=== PATIENT | female | born 2000 | race Caucasian/White ===

== ENCOUNTER 2022-09-19 12:36 | Outpatient (OUT) | payer OTHER, SELFPAY ==
[2022-09-19 13:11] LABS: Basophils Percent Auto 0.4 % (0.2-2.0); Eosinophils Absolute Auto 0.3 10^3/uL (0.0-0.7); Eosinophils Percent Auto 3.3 % (0.9-7.0); Hematocrit 39.1 % (36.0-48.0); Hemoglobin 13.7 g/dL (12.0-16.0); Immature Granulocytes Abs Auto 0.02 10^3/uL (0.00-0.03); Immature Granulocytes Pct Auto 0.3 % (0.0-0.5); Lymphocytes Absolute Auto 0.7 10^3/uL (1.2-3.8); Lymphocytes Percent Auto 9.5 % (20.5-60.0); Mean Corpuscular Hemoglobin 31.1 pg (26.7-34.0); Mean Corpuscular Volume 88.9 fL (81.0-99.0); Mean Platelet Volume 11.1 fL (9.5-13.5); Monocytes Absolute Auto 0.4 10^3/uL (0.3-0.8); Monocytes Percent Auto 4.9 % (1.7-12.0); Neutrophils Absolute Auto 6.2 10^3/uL (1.4-6.5); Neutrophils Percent Auto 81.6 % (43.0-75.0); Platelet Count 222 10^3/uL (150-450); Red Cell Distribution Width 13.1 % (11.0-15.0); White Blood Count 7.6 10^3/uL (4.0-11.0)
[2022-09-19 13:37] LABS: Estimated Average Glucose 85 mg/dL; Glycohemoglobin A1C 4.6 % (4.5-6.2)
[2022-09-19 13:46] LABS: Thyroid Stimulating Hormone 0.473 uIU/mL (0.358-3.740)
[2022-09-20 06:08] LABS: HBsAg Screen Negative (Negative); HCV Ab Non Reactive (Non Reactive); HIV Ab/p24 Ag Screen Non Reactive (Non Reactive); Rubella Antibodies, IgG 1.91 index (Immune >0.99)
[2022-09-20 12:09] LABS: Rapid Plasma Reagin, Quant Non Reactive (NonRea<1:1)
== END 2022-09-19 12:37 ==
LOC: LAB 12:39
PROVIDERS: PCP Family Medicine; Visit Provider Obstetrics & Gynecology
DX: N92.6 Irregular menstruation, unspecified (principal)
CPT/HCPCS: 36415; 83036; 84443; 85025; 86592; 86762; 86803; 86850; 86900; 86901; 87086; 87340; 87389

== ENCOUNTER 2022-11-28 10:02 | Outpatient (RCR) | payer OTHER, SELFPAY ==
[2022-11-28 10:05] VITALS: BP 127/81; PULSE 86; RESP 18; TEMP 36.6; O2SAT 99
--- NOTE | 2022-11-28 10:05 | PC.NURSE ---
Pt. to [facility] amb. per self. Seated in recliner. VSS. Blood type verified. Pt. denies questions about med. Denies adverse reactions from past injections. Pt. medicated with Rhophylac, 300 mcg, IM to right dorsal gluteal. No bleeding to site. Pt. tolerated without c/o. Pt. kept for brief observation. D/c'd to home amb.
[2022-11-28] MEDS: RHO(D) IMMUNE GLOBULIN 1,500 UNIT SYRINGE 1500 UNIT IM (10:07)
== END 2022-12-12 23:59 | disposition home or self-care (01) ==
LOC: INF 10:02
PROVIDERS: PCP Family Medicine; Visit Provider Obstetrics & Gynecology
DX: O26.893 Other specified pregnancy related conditions, third trimester (principal); Z67.91 Unspecified blood type, Rh negative; Z3A.00 Weeks of gestation of pregnancy not specified
CPT/HCPCS: 96372; J2790

== ENCOUNTER 2022-12-11 20:33 | Outpatient (REF) | payer OTHER, SELFPAY | END 2022-12-11 20:34 | disposition home or self-care (01) | LOC: LAB 20:33 | PROVIDERS: PCP Family Medicine; Visit Provider Obstetrics & Gynecology | DX: Z34.93 Encounter for supervision of normal pregnancy, unspecified, third trimester (principal) | CPT/HCPCS: 87081 ==

== ENCOUNTER 2022-12-30 04:55 | Inpatient (IN) | payer OTHER, SELFPAY ==
[2022-12-30] VITALS (36 sets, daily range): BP systolic 80–153; BP diastolic 50–85; PULSE 48–116; RESP 16–18; TEMP 36.4–36.6
[2022-12-30 05:56] LABS: Hematocrit 33.7 % (36.0-48.0); Hemoglobin 11.7 g/dL (12.0-16.0); Mean Corpuscular HGB Conc 34.7 g/dL (29.9-35.2); Mean Corpuscular Hemoglobin 29.9 pg (26.7-34.0); Mean Corpuscular Volume 86.2 fL (81.0-99.0); Mean Platelet Volume 11.5 fL (9.5-13.5); Platelet Count 201 10^3/uL (150-450); Red Blood Count 3.91 10^6/uL (4.20-5.40); White Blood Count 6.8 10^3/uL (4.0-11.0)
[2022-12-30 06:19] LABS: Cannabinoid Screen Urine POSITIVE (NEGATIVE)
[2022-12-30 06:20] LABS: Amphetamine Screen Urine NEGATIVE (NEGATIVE); Barbiturates Screen Urine NEGATIVE (NEGATIVE); Benzodiazepines Screen Urine NEGATIVE (NEGATIVE); Buprenorphine Screen Urine NEGATIVE (NEGATIVE); Cocaine Screen Urine NEGATIVE (NEGATIVE); Methadone Screen Urine NEGATIVE (NEGATIVE); Methamphetamines Screen Urine NEGATIVE (NEGATIVE); Opiate Screen Urine NEGATIVE (NEGATIVE); Oxycodone Screen Urine NEGATIVE (NEGATIVE); Phencyclidine Screen Urine NEGATIVE (NEGATIVE); Tricyclic Antidepressant Urine NEGATIVE (NEGATIVE)
[2022-12-30] MEDS: 0.9 % SODIUM CHLORIDE 1,000 ML 125 ML IV (06:42)
[2022-12-30] MEDS: OXYTOCIN/0.9 % SODIUM CHLORIDE 10 UNITS/500 ML PLAST..BAG 6 UNIT IV (06:45)
[2022-12-30] MEDS: ROPIVACAINE HCL/PF 400 MG/200 ML PREMIX 6 MG EPIDURAL (11:31)
[2022-12-30] MEDS: FENTANYL CITRATE/PF 100 MCG/2 ML VIAL EPIDURAL (11:32)
--- NOTE | 2022-12-30 15:00 | PM.OBPRCVD ---
Procedure Intrapartal events: None Induction method: per pitocin protocol Delivery augmentation: rupture of membranes and pitocin Delivery monitor: external FHT and external uterine Route of delivery: Laceration description: perineal - 1st degree Delivery repair: Vicryl Estimated blood loss (mL): 400 Anesthesia type: Epidural Disposition: floor Infant Delivery date: 12/30/22 Gender: female presentation: vertex Placental delivery description: Spontaneous cord description: 3 Vessels
[2022-12-30] MEDS: IBUPROFEN 600 MG TABLET PO (15:31)
--- NOTE | 2022-12-30 16:54 | PC.NURSE ---
pt c/o abdominal cramping, 11/21. on left side. c/o lower back pain. Motrin and heating pad offered. pt accepts. Motrin given as requested PO with snack and fresh ice water. Pad changed for a moderate-large amount of rubra. Uterus firm at 2/u.
--- NOTE | 2022-12-30 16:57 | PC.NURSE ---
1625-latches infant to breast independently. reports some relief from cramping pain. rates 5/10. denies other needs at this time
[2022-12-30] MEDS: METHYLERGONOVINE MALEATE 0.2 MG/ML AMPULE IM (18:18)
[2022-12-30] MEDS: ONDANSETRON PF 4 MG/2 ML VIAL IV (18:54)
--- NOTE | 2022-12-30 19:27 | PC.NURSE ---
pt requests up to BR. Moderate amount of rubra noted on chux. uterus 1/u. Assisted up to BR, tolerates well and to BR. This RN assists pt to toilet to void. pt voids, and then turns pale and diaphoretic, closes eyes and has syncopal episode for approx 10-15 seconds. This RN over pt, places cool wash rag on forehead and rubs pts face, assistance requested. IV 20 pit in 1000 NS to 999ml/hr. Pt opens eyes, oriented to person place. [id number] to room, ammonia capsule inhaled per pt, becomes more alert instantly. pericare completed. Pad and mess underwear applied. assisted to wheelchair to return to bed. Pt smiling , talking oriented. Bedlinens changed , comfort mattress applied. Assisted to bed, tolerates well in low semi levy's . BP as charted. Pt remains slightly pale but lips pink. 1804-Dr. Floyd notified of above. orders receieved to give Mehtergine 0.2mg IM as ordered. 1817-Pt remains in bed comfortable, asymptomatic. Visiting with family . Methergine 0.2mg give in right thigh IM. 1824-pt eats supper. denies needs BP as charted. 1844-pt reports large emesis big gush . Small dinner plate size clot noted, moderate rubra. Uterus firm at 1/u. Perineum incision inspected, well approximated, no edema noted. Chux and pad changed. VSS. 185-Zofran 4mg given IV as requested. denies other needs at this time. 1899-report to Laquita BEAL. Care relinquished.
--- NOTE | 2022-12-30 20:49 | PC.NURSE ---
2034- Patient up to bathroom via wheelchair. While sitting on toilet patient states she feels dizzy and ears are ringing. Patient is pale in color. This RN called for help, Amonia used with patient response. Patient alert and oriented. Taken back to bed,Uterus firm at U/E minimal bleeding and vitals WNL.
[2022-12-30] MEDS: 0.9 % SODIUM CHLORIDE 1,000 ML 999 ML IV (21:19)
--- NOTE | 2022-12-30 21:20 | PC.NURSE ---
500cc bolus of NS started d/t patients symptoms.
[2022-12-31] MEDS: IBUPROFEN 600 MG TABLET PO ×2 (00:48→10:18)
--- NOTE | 2022-12-31 05:40 | PM.OBPN ---
OB - PN: Subj Subjective Patient comments: no complaints, pain well controlled and flatus present infant status: doing well [facility] feeding status: exclusively Exam Constitutional Vital Signs, click to edit/add: Last Vital Signs Temp 97.6 F 12/30/22 23:20 Pulse 69 12/30/22 23:20 Resp 16 12/30/22 23:20 BP 132/66 12/30/22 23:20 O2 Del Method Room Air 12/30/22 23:20 Documenting provider has reviewed patient's vital signs: yes Common normals: no apparent distress Orientation/consciousness: Yes awake, Yes oriented to person, Yes oriented to place and Yes oriented to time HENMT Common normals: normocephalic Eye Common normals: EOMs intact bilaterally General eye: normal appearance of both eyes Neck & C-Spine Common normals: full ROM Lymph Lymphatic: no lymphadenopathy noted Chest Common normals: inspection of chest normal Respiratory Common normals: normal respiratory effort, no retractions, no use of accessory muscles and clear to auscultation bilaterally Effort & inspection: able to speak in complete sentences Auscultation: clear to auscultation bilaterally Cardio Common normals: regular rate and regular rhythm Rate: regular rate Rhythm: regular rhythm GI Common normals: Normal to inspection, nondistended, normoactive bowel sounds present, soft to palpation and non-tender Inspection: normal to inspection Auscultation: normoactive bowel sounds Palpation: soft Common normals: no CVA tenderness Back & Pelvis Common normals: no CVA tenderness Extremity Common normals: normal to inspection and full ROM Neuro Common normals: oriented x3 Sensorium/orientation: awake, alert, oriented to person, oriented to place and oriented to time Psych Common normals: mental status grossly normal, thought process normal, cooperative, affect normal and speech normal Attitude: calm Results Labs Labs: Short CBC 12/30/22 Range/Units 05:20 WBC 6.8 (4.0-11.0) 10^3/uL Hgb 11.7 L (12.0-16.0) g/dL Hct 33.7 L (36.0-48.0) % Plt Count 201 (150-450) 10^3/uL OB - PN: A/P Plan - Vaginal Delivery day: 1 Plan: routine care, discharge home and follow up 6 weeks Comment: follow up with Dr Lujan in 6 weeks Time Spent with Patient Time: Total time spent is greater than 50% in coordination of care (as documented) at patient's floor/unit and/or counseling patient: Total time spent with greater than 50% in coordination of care (as documented) at patient's floor/unit and/or counseling patient: less than 15 minutes
[2022-12-31 06:05] LABS: Basophils Percent Auto 0.3 % (0.2-2.0); Eosinophils Percent Auto 0.2 % (0.9-7.0); Hemoglobin 7.8 g/dL (12.0-16.0); Immature Granulocytes Abs Auto 0.04 10^3/uL (0.00-0.03); Immature Granulocytes Pct Auto 0.4 % (0.0-0.5); Lymphocytes Absolute Auto 0.9 10^3/uL (1.2-3.8); Mean Corpuscular HGB Conc 34.1 g/dL (29.9-35.2); Mean Corpuscular Hemoglobin 30.1 pg (26.7-34.0); Mean Corpuscular Volume 88.4 fL (81.0-99.0); Mean Platelet Volume 11.4 fL (9.5-13.5); Monocytes Absolute Auto 0.7 10^3/uL (0.3-0.8); Monocytes Percent Auto 6.3 % (1.7-12.0); Neutrophils Absolute Auto 8.7 10^3/uL (1.4-6.5); Neutrophils Percent Auto 83.8 % (43.0-75.0); Platelet Count 188 10^3/uL (150-450); Red Blood Count 2.59 10^6/uL (4.20-5.40); Red Cell Distribution Width 13.2 % (11.0-15.0); White Blood Count 10.4 10^3/uL (4.0-11.0)
[2022-12-31 06:09] LABS: Hematocrit 22.9 % (36.0-48.0)
[2022-12-31 06:25] VITALS: BP 109/56; PULSE 80
[2022-12-31 07:49] VITALS: BP 125/55; PULSE 77
[2022-12-31 08:00] VITALS: PULSE 77; RESP 16; TEMP 36.9
[2022-12-31] MEDS: DOCUSATE SODIUM 100 MG CAPSULE PO (10:17)
[2022-12-31] MEDS: FERROUS SULFATE 325 MG TABLET PO (10:18)
--- NOTE | 2022-12-31 14:48 | SWNOTE1 ---
SW met with pt as she was positive for THC on admission. Pt does admit to THC use during due to nausea, anxiety, and to help her sleep. Pt does admit that she will continue to use at discharge to help with sleeping. Pt does have 2 other children, they are 2 and 3 at the home. During one of those pregnancies she used a Zofran pump and the other she took Zofran. She still lost weight during those pregnancies and felt nauseous. She did voice for this she was feeling better and gained weight. Pt does not have a medical marijuana card. Pt does have good support at home, pt's mother in room during assessment. Father of kaelyn is involved and they live together with their 2 other children. 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 Pt voiced understanding and did admit to not caring for herself after her son was born. SW advised to reach out to her support if she has any of those feelings come back. Pt did talk about anxiety some, she has not went to any counseling for it. Again pt has good support she can go to. Pt has everything she needs at home for baby. Pt is bonding with baby appropriately, at this time baby shows no signs of withdrawal. SW did let pt and pt's mother know that due to the [place] Law, SW is mandated reported and a [place] will be made [place] [facility]. At this time they did not have any questions. SW to follow as needed. CHANCE called [place] [facility], HIPPA form filled out and sent to
[2022-12-31 16:00] VITALS: BP 106/58; PULSE 68; RESP 16; TEMP 36.7
== END 2022-12-31 17:00 | disposition home or self-care (01) | DRG 807 ==
PROVIDERS: Admitting Provider Obstetrics & Gynecology; PCP Family Medicine; Visit Provider Obstetrics & Gynecology
DX: O99.52 Diseases of the respiratory system complicating childbirth (principal); Z37.0 Single live birth; J45.40 Moderate persistent asthma, uncomplicated; O99.62 Diseases of the digestive system complicating childbirth; K21.9 Gastro-esophageal reflux disease without esophagitis; O70.0 First degree perineal laceration during delivery; Z3A.00 Weeks of gestation of pregnancy not specified; Z80.9 Family history of malignant neoplasm, unspecified
CPT/HCPCS: 36415; 80307; 85025; 85027; 86850; 86900; 86901; 96372; 96374; 96375

== ENCOUNTER 2024-09-16 06:56 | Outpatient (OUT) | payer BC, SELFPAY ==
--- OUTSIDE RECORDS SUMMARY | 2024-09-09 13:00 | XMS_ITS | Encounter Summary ---
Author Organization [facility] Address [address] [place] [address] Care Team Providers Care Radio Board Operator Name Role Phone Richard Galaviz MD Primary Care Provider [phone] Elie Lujan DO Unavailable Encounter Details Date Type Department Care Team (Late st Contact Info) Description 09/09/2024 1:00 PM EDT Ancillary Procedure [facility] OB [address] [place] [address] Missed menses Social History Tobacco Use Types Packs/Day Years Used Date Smoking Tobacco: Never Alcohol Use Standard Drinks/Week Comments Never 0 (1 standard drink = 0.6 oz pur e alcohol) Caffeine intake: none Education Answer Date Recorded What is the highest level of school you have completed or the highest degree you have received? 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) Not on file Not on file Not on file documented as of this encounter Plan of Treatment Upcoming Encounters Date Type Department Care Team (Late st Contact Info) Description 09/22/2024 11:20 AM EDT Routine [facility] [address] [place] [address] Elie Lujan DO [address], [facility] documented as of this encounter Procedures Procedure Name Priority Date/Time Associated Diagnosis Comments US OB LIMITED 1+ FETUSES Routine 09/09/2024 1:35 PM EDT Missed menses documented in this encounter Results * US OB limited 1+ fetuses (09/09/2024 1:35 PM EDT) Anatomical Region Laterality Modality Body Ultrasound 09/10/2024 11:5 4 AM EDT Narrative 09/10/2024 11:54 AM EDT EXAM: US OB LIMITED 1+ FETUSES HISTORY: Dating, late care. COMPARISON: None available. TECHNIQUE: Two-dimensional transabdominal grayscale ultrasound imaging of the pelvis was performed. FINDINGS: Gestation: Single Presentation: Breech Cardiac Activity: 144 beats per minute Placental Location: Fundal with no sonographic abnormalities identified. Cervical Length: 4.8 cm Amniotic Fluid: Appears adequate Right ovary: 4.1 x 1.8 x 3.2 cm Left ovary: Not visualized MEASUREMENTS: BPD: 6.2 cm EGA: 25 weeks 0 days HC: 23.9 cm EGA: 26 weeks 0 days AC: 22.1 cm EGA: 26 weeks 4 days FL: 5.0 cm EGA: 26 weeks 5 days HC/AC Ratio: 1.08 The gestational age by today's ultrasound is 26 weeks 1 days (+/- 13 days gestation). Estimated Weight: 942 grams, +/- 141 grams ( 2 lb 1 oz). Weight Percentile for gestational age: >97 % IMPRESSION: 1. Single, live intrauterine gestation 20 weeks, 2 days by LMP. Today's ultrasound measurements correlate with a gestational age of 26 weeks 1 days. Estimated weight is 942 grams, +/- 141 grams ( 2 lb 1 oz) which correlates to >97 %. EVARISTO is 12/15/2024. 2. growth is measuring large for gestational age. This is most likely due to an inaccurate LMP. Interpreted by: Electronically signed by QUENTIN STERLING II, MD, PHD at 10-Sep-2024 11:53:18 AM [facility] Procedure Note Quentin Sterling MD - 09/10/2024 EXAM: US OB LIMITED 1+ FETUSES HISTORY: Dating, late care. COMPARISON: None available. TECHNIQUE: Two-dimensional transabdominal grayscale ultrasound imaging ofthe pelvis was performed. FINDINGS: Gestation: Single Presentation: Breech Cardiac Activity: 144 beats per minute Placental Location: Fundal with no sonographic abnormalitiesidentified. Cervical Length: 4.8 cm Amniotic Fluid: Appears adequate Right ovary: 4.1 x 1.8 x 3.2 cm Left ovary: Not visualized MEASUREMENTS: BPD: 6.2 cm EGA: 25 weeks 0 days HC: 23.9 cm EGA: 26 weeks 0 days AC: 22.1 cm EGA: 26 weeks 4 days FL: 5.0 cm EGA: 26 weeks 5 days HC/AC Ratio: 1.08 The gestational age by today's ultrasound is 26 weeks 1 days (+/- 13 daysgestation). Estimated Weight: 942 grams, +/- 141 grams ( 2 lb 1 oz). Weight Percentile for gestational age: >97 % IMPRESSION: 1. Single, live intrauterine gestation 20 weeks, 2 days by LMP. Today'sultrasound measurements correlate with a gestational age of 26 weeks 1days. Estimated weight is 942 grams, +/- 141 grams ( 2 lb 1 oz)which correlates to >97 %. EVARISTO is 12/15/2024. 2. growth is measuring large for gestational age. This is mostlikely due to an inaccurate LMP. Interpreted by: Electronically signed by QUENTIN STERLING II, MD, PHD [id number] 11:53:18 AM [facility] us Elie Ljuan DO IMG OB US PROCEDURES Final Resul t documented in this encounter Visit Diagnoses Diagnosis Missed menses documented in this encounter Care Teams Radio Board Operator Relationship Specialty Start Date End Date Richard Galaviz MD [address] [facility] [address] [place] [address] PCP - General Family Medicine 09/10/22 Elie Lujan DO [address] [facility] [place] [address] PCP - [facility] 07/14/23 documented as of this encounter
--- OUTSIDE RECORDS SUMMARY | 2024-09-09 13:30 | XMS_ITS | Encounter Summary ---
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 female who presents for Amenorrhea Patient presents today for a Nurse OB Intake appointment. Patient is 26w1d with a Estimated Date ofDelivery: 12/15/24 OB History Para Term AB Living 4 2 2 2 SAB IAB Ectopic Multiple Live Births 2 # Outcome Date GA Lbr Haroon/2nd Weight Sex Type Anes PTL Lv 4 Current 3 Term 09/28/20 38w0d 5 lb 11 oz F Vag-Spont MARIANNE 2 Term 10/08/19 39w0d 5 lb 11 oz M Vag-Spont MARIANNE 1 Current Medications: has a current medication list which includes the following prescription(s): albuterol hfa and dulera. Medical History: Active Ambulatory Problems Diagnosis Date Noted Acute asthma exacerbation ([facility]) 06/21/2018 Gastroesophageal reflux disease without esophagitis 05/27/2016 Metrorrhagia 05/12/2017 Menorrhagia with irregular cycle 09/20/2022 Moderate persistent asthma without complication (CMS/HCC) 11/11/2019 Rosacea 09/20/2022 Resolved Ambulatory Problems Diagnosis Date Noted No Resolved Ambulatory Problems Past Medical History: Diagnosis Date Allergies Exercise-induced asthma GERD (gastroesophageal reflux disease) History of being hospitalized 06/2018 Mild persistent asthma without complication ([facility]) Severe persistent asthma with status asthmaticus ([facility]) Family History Problem Relation Name Age of Onset Cancer Father No Known Problems Brother No Known Problems Brother Social History Tobacco Use Smoking status: Never Smokeless tobacco: Not on file Substance Use Topics Alcohol use: Never Comment: Caffeine intake: none Drug use: Never History reviewed. No pertinent surgical history. No Known Allergies Vitals: Estimated body mass index is 22.26 kg/m?? as calculated from the following: Height as of 08/23/22: 5' 7 . Weight as of 08/26/23: 142 lb 1.9 oz. BP: Patient's last menstrual period was 04/20/2024. Assessment/Plan Diagnoses and all orders for this visit: Missed menses - Type and screen; Future - ABO/Rh; Future - CBC and differential - Hemoglobin A1c - RPR - Rubella antibody, IgG - Hepatitis B surface antigen - Hepatitis C antibody - HIV-1 and HIV-2 antibodies - Urine culture - POCT , urine manually resulted - POCT urinalysis dipstick manually resulted with normal glucose tolerance test (GTT) , unspecified gestational age - Type and screen; Future - ABO/Rh; Future - CBC and differential - Hemoglobin A1c - RPR - Rubella antibody, IgG - Hepatitis B surface antigen - Hepatitis C antibody - HIV-1 and HIV-2 antibodies - Rapid drug screen, urine; Future Encounter for supervision of normal first in first trimester - Rapid drug screen, urine; Future Screening, , for anatomic survey - US OB 14+ weeks anatomy scan; Future Diabetes mellitus screening - CBC; Future - Glucose tolerance, 1 hour; Future Nurse Note: OB Intake: Patient presents today for first OB visit. Patients history has been reviewed in great detail including any potential risks. Patient signed consent forms and patient desires testing in both trimesters. Patient currently has no complaints and has been advised to drink 6-8 glasses of water a day, eatno raw or undercooked meat, and stay away from [facility]. Patient has also been advised to not change litter boxes and eat 6 small meals a day. Patient has been consulted regarding the do's and don'ts ofpregnancy. Patient was given labs and all questions and concerns were answered. Pt was given her anatomy scan order and her order for her 1 hour glucose test along with her lab work. Pt advised to get all orders done prior to next appointment. Follow Up: Patient is to return in 4 weeks for routine OB appointment. Follow Up: Patient is to have labs drawn at directed and return to office for initial OB appointment with provider. Patient may call office as needed with any concerns or questions. Nurse Visit Completed by: Michaelle Richey LPN documented in this encounter Plan of Treatment Upcoming Encounters Date Type Department Care Team (Late st Contact Info) Description 09/22/2024 11:20 AM EDT Routine [facility] [address] [place] [place] [address] Elie Lujan, DO [address] [place] [address] Scheduled Orders Name Type Priority Associated Diagnoses Orde r Schedule Type and screen Lab Routine Missed menses , unspecified gestational age Expected: 09/09/2024 (Approximate), Expires: 09/09/2025 ABO/Rh Lab Routine Missed menses , unspecified gestational age Expected: 09/09/2024 (Approximate), Expires: 09/09/2025 CBC and differential Lab Routine Missed menses , unspecified gestational age Ordered: 09/09/2024 Hemoglobin A1c Lab Routine Missed menses , unspecified gestational age Ordered: 09/09/2024 RPR Lab Routine Missed menses , unspecified gestational age Ordered: 09/09/2024 Rubella antibody, IgG Lab Routine Missed menses , unspecified gestational age Ordered: 09/09/2024 Hepatitis B surface antigen Lab Routine Missed menses , unspecified gestational age Ordered: 09/09/2024 Hepatitis C antibody Lab Routine Missed menses , unspecified gestational age Ordered: 09/09/2024 HIV-1 and HIV-2 antibodies Lab Routine Missed menses , unspecified gestational age Ordered: 09/09/2024 Urine culture Microbiology Routine Missed menses Ordered: 09/09/2024 Rapid drug screen, urine Lab Routine , unspecified gestational age Encounter for supervision of normal first in first trimester Expected: 09/09/2024 (Approximate), Expires: 09/09/2025 US OB 14+ weeks anatomy scan Imaging Routine Screening, , for anatomic survey Expected: 09/09/2024, Expires: 12/10/2024 CBC Lab Routine Diabetes mellitus screening Expected: 09/09/2024 (Approximate), Expires: 09/09/2025 Glucose tolerance, 1 hour Lab Routine Diabetes mellitus screening Expected: 09/09/2024 (Approximate), Expires: 09/09/2025 documented as of this encounter Procedures Procedure Name Priority Date/Time Associated Diagnosis Comments POCT URINALYSIS DIPSTICK Routine 09/09/2024 2:11 PM EDT Missed menses POCT , URINE Routine 09/09/2024 2:09 PM EDT Missed menses documented in this encounter Results * POCT urinalysis dipstick manually resulted (09/09/2024 2:11 PM EDT) Color, UA Yellow Clarity, UA Clear Glucose, UA Negative Negative - 2000(110) ++++ mg/dL Bilirubin, UA Negative Negative - 4(70) +++ mg/dL Ketones, UA Negative Negative - 160(16) ++++ mg/dL Spec Grav, UA 1.025 1 - 1.03 Blood, UA Negative Negative - 50 Saravanan/mcL pH, UA 6.5 5 - 9 Protein, UA Negative Negative - 2000(20) ++++ mg/dL Urobilinogen, UA 1.0 0.2 - 12 mg/dL Leukocytes, UA Negative Negative - 500+++ Karl/mcL Nitrite, UA Negative Negative - Positive Urine 09/09/2024 2:11 PM EDT [facility] POINT OF [facility]ARE [facility] ENTER/EDIT OR DERABLES Final Result * (ABNORMAL) POCT , urine manually resulted (09/09/2024 2:09 PM EDT) Preg Test, Ur Positive Negative Urine 09/09/2024 2:09 PM EDT Elie Lujan DO POINT OF CARE TEST ENTER/EDIT OR DERABLES Final Result documented in this encounter Visit Diagnoses Diagnosis Missed menses with normal glucose tolerance test (GTT) , unspecified gestational age Encounter for supervision of normal first in first trimester Screening, , for anatomic survey Encounter for anatomic survey Diabetes mellitus screening Screening for diabetes mellitus documented in this encounter Care Teams Discharge Door Operator Relationship Specialty Start Date End Date Richard Galaviz MD [address] [facility] [address] [place] [address] PCP - General Family Medicine 09/10/22 Elie Lujan DO [address] [facility] [place] [address] [place] [address] PCP - [facility] 07/14/23 documented as of this encounter
--- OUTSIDE RECORDS SUMMARY | 2024-09-16 07:01 | XMS_ITS | Clinical Summary ---
Author Organization [facility] Healthcare Address [address] [place] [address] Care Team Providers Care Traffic Rate Computer Name Role Phone Richard Galaviz MD Primary Care Provider [phone] Elie Lujan DO Unavailable Allergies No known active allergies Medications mometasone-formo terol (Dulera) 100-5 MCG/ACT inhalerIndicatio ns:Moderate persistent asthma without complication (CMS/HCC) Inhale 2 puffs in the morning and 2 puffs before bedtime. Rinse mouth with water after use to reduce aftertaste and incidence of candidiasis. Do not swallow.. 13 g 11 4 025 Active albuterol HFA 90 mcg/act inhalerIndicatio ns:Moderate persistent asthma without complication (CMS/HCC) Inhale 2 puffs every 4 (four) hours if needed for wheezing 18 g 5 025 Active etonogestrel-eth inyl estradiol (Nuvaring) 0.12-0.015 MG/24HR vaginal ringIndications: control counseling Insert 1 Ring into the vagina every 28 (twenty-eight) days Insert vaginal ring for 3 weeks, then remove for 1 week. 12 each 4 025 Discontin ued(Other ) albuterol HFA 90 mcg/act inhalerIndicatio ns:Moderate persistent asthma without complication (CMS/HCC) Inhale 2 puffs every 4 (four) hours if needed for wheezing 18 g 11 4 025 Discontin ued(Reord er) Active Problems Problem Noted Date Diagnosed Date Menorrhagia with irregular cycle 09/20/2022 Rosacea 09/20/2022 Moderate persistent asthma without complication 11/11/2019 Acute asthma exacerbation 06/21/2018 Metrorrhagia 05/12/2017 Gastroesophageal reflux disease without esophagi tis 05/27/2016 Estimated Date of Delivery Comme nts Yes 12/15/2024 Based on Ultraso und Encounters Date Type Department Care Team Description 09/09/2024 1:30 PM EDT Initial [facility] [address] [place] [address] GA: 26w1d 09/09/2024 1:00 PM EDT Ancillary Procedure [facility] [address] [place] [id number] Missed menses 09/09/2024 Travel 09/02/2024 Orders Only [facility] [address] [place] [address] Richard Galaviz MD Moderate persistent asthma without complication (CMS/HCC) 09/02/2024 Refill [facility] [address] [place] [address] Richard Galaviz MD Moderate persistent asthma without complication (CMS/HCC) 09/02/2024 Refill [facility] [address] [place] [address] Richard Galaviz MD Moderate persistent asthma without complication (CMS/HCC) 08/30/2024 Refill [facility] [address] [place] [address] Richard Galaviz MD Moderate persistent asthma without complication (CMS/HCC) from Last 3 Months Immunizations Immunization Administration Dates Next Due DTaP / HiB / IPV 10/22/2000,05/30/2000, 0 DTaP / Hib 12/09/2001 DTaP / IPV 10/02/2005 Hep B, Adolescent or Pediatric 10/22/2000,2000,02/27/2000 HiB, unspecified 12/09/2001 IPV 10/02/2005,10/22/2000,05/30/2000 ,02/27/2000 MMR 12/09/2001 MMRV 10/02/2005 Family History Medical History Relation Name Comments No Known Problems Brother 1 No Known Problems Brother 2 Cancer Father Relation Name Status Comments Brother 1 Alive Brother 2 Alive Daughter Alive Father Mother Alive Son Alive Social History Tobacco Use Types Packs/Day Years Used Date Smoking Tobacco: Never Tobacco Cessation:Counseling Given: No Alcohol Use Standard Drinks/Week Comments Never 0 [...] 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 Not on file Not on file Last Filed Vital Signs Vital Sign Reading Time Taken Comments Blood Pressure 116/76 08/26/2023 9:12 AM EDT Pulse 74 10/30/2023 2:56 PM EDT Temperature - - Respiratory Rate - - Oxygen Saturation 98% 10/30/2023 2:56 PM EDT Inhaled Oxygen Concentration - - Weight 69.4 kg (153 lb) 09/09/2024 2:12 PM EDT Height 170.2 cm (5' 7 ) 08/23/2022 12:00 PM EDT Body Mass Index 23.96 08/23/2022 12:00 PM EDT Plan of Treatment Upcoming Encounters Date Type Department Care Team (Late st Contact Info) Description 09/22/2024 11:20 AM EDT Routine [facility] OB [address] [place] [address] Elie Lujan, [address] [place] [address] Health Maintenance Due Date Last Done Comments Influenza Vaccine (Season Ended) 2024 Procedures Procedure Name Priority Date/Time Associated Diagnosis Comments POCT URINALYSIS DIPSTICK Routine 09/09/2024 2:11 PM EDT Missed menses POCT , URINE Routine 09/09/2024 2:09 PM EDT Missed menses US OB LIMITED 1+ FETUSES Routine 09/09/2024 1:35 PM EDT Missed menses from Last 3 Months Results * POCT urinalysis dipstick manually resulted [...] - Positive Urine 09/09/2024 2:11 PM EDT [facility] [place] POINT OF CARE TEST ENTER/EDIT OR DERABLES Final Result * (ABNORMAL) POCT , urine manually resulted (09/09/2024 2:09 PM EDT) Preg Test, Ur Positive Negative Urine 09/09/2024 2:09 PM EDT Elie Le DO POINT OF CARE TEST ENTER/EDIT OR DERABLES Final Result * US OB limited 1+ fetuses (09/09/2024 [...] II, MD, PHD at 10-Sep-2024 11:53:18 AM [facility] Procedure Note Quentin Sterling MD - [...] signed by QUENTIN STERLING II, MD, PHD [id number] 11:53:18 AM [facility] us Elie Lujan DO IMG OB US PROCEDURES Final Resul t from Last 3 Months Insurance [facility] Care Teams Traffic Rate Computer Relationship Specialty Start Date End Date Richard Galaviz MD [address] [facility] [address] [place] [address] PCP - General Family Medicine 09/10/22 Elie Lujan DO [address] [facility] [place] [address] [facility] 07/14/23
--- OUTSIDE RECORDS SUMMARY | 2024-09-16 07:01 | XMS_ITS | Encounter Summary ---
Author Organization [facility] Address [address] [place] [address] Care Team Providers Care Seo Expert Name Role Phone Richard Galaviz MD Primary Care Provider [phone] Elie Lujan DO Unavailable Encounter Details Date Type Department Care Team (Late st Contact Info) Description 10/22/2022 External Result Encounter [facility] OB [address] [place] [address] Elie Lujan DO [address], [place] [address] Social History Tobacco Use Types Packs/Day Years Used Date Smoking Tobacco: Never Alcohol Use Standard Drinks/Week Comments Never 0 (1 standard drink = 0.6 oz pur e alcohol) Caffeine intake: none Comments Yes Sex and Gender Information Value Date Recorded Sex Assigned at Not on file Legal Sex Female 7:00 PM EDT Gender Identity Not on file Sexual Orientation Not on file COVID-19 Exposure Response Date Recorded In the last 10 days, have yo u been in contact with someone who was confirmed or suspected to have Coronavirus/COVID-19? No / Unsure 09/24/2022 4:13 PM EDT documented as of this encounter Plan of Treatment Upcoming Encounters Date Type Department Care Team (Late st Contact Info) Description 09/22/2024 11:20 AM EDT Routine [facility] OB [address] [place] [address] Elie Lujan DO [address], [facility] documented as of this encounter Procedures Procedure Name Priority Date/Time Associated Diagnosis Comments US OB 14+ WEEKS ANATOMY SCAN 10/22/2022 3:39 PM EDT documented in this encounter Results * US OB 14+ weeks anatomy scan (10/22/2022 3:39 PM EDT) Anatomical Region Laterality Modality Body Ultrasound 10/22/2022 3:39 PM EDT Narrative 10/22/2022 3:39 PM EDT THIS EXAM WAS PERFORMED AT [facility] REPORT (Signed Final 10/22/2022 15:39) PATIENT INFO: ID #: [id number] : [birth year] (21 yrs)(F) Name: SHEILA GAUTHIER Visit Date: 10/22/2022 13:46 PERFORMED BY: Attending: Melo Saunders MD Performed By: Malu Berman RDMS Referred By: Elie Santiago. Address: [address] [place] [address] 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 Cord Insertion: Eccentric (>2cm from edge) Largest Pocket(cm) 4.92 BIOMETRY: BPD: 73.1 mm G.Age: 29w 2d 34 % OFD: 100.8 mm HC: 276.6 mm G.Age: 30w 2d 39 % AC: 255.9 mm G.Age: 29w 5d 55 % FL: 58 mm G.Age: 30w 2d 62 % HUM: 50.4 mm G.Age: 29w 4d 50 % CER: 35.5 mm G.Age: 29w 5d 57 % LV: 2.3 mm CM: 5.3 mm TIB: 49.8 mm G.Age: 29w 6d 61 % CI: 72.5 % 70 - 86 FL/HC: 21.0 % 19.6 - 20.8 HC/AC: 1.08 0.99 - 1.21 FL/BPD: 79.3 % 71 - 87 FL/AC: 22.7 % 20 - 24 Est. FW: 1486 gm 3 lb 4 oz 57 % OB HISTORY: : 3 Term: 2 Livin GESTATIONAL AGE: LMP: 19w 5d Date: 06/06/22 EVARISTO: 03/13/23 U/S Today: 29w 6d EVARISTO: 01/01/23 Best: 29w 3d Det. By: Early EVARISTO: 01/04/23 Ultrasound (08/23/22) TARGETED ANATOMY: Central Nervous System Calvarium/Cranial V.: Appears normal Intracranial Lilia: Appears normal Cavum: Appears normal Parenchyma: Appears Normal Lateral Ventricles: Appears normal Choroid Plexus: Appears normal Cereb./Vermis: Appears normal Cisterna Magna: Appears normal Midline Falx: Appears Normal Spine Cervical: Appears normal Thoracic: Appears normal Lumbar: Appears normal Sacral: Appears normal Shape/Curvature: Appears Normal Head/Neck Face: Not well visualized Lips: Appears normal Neck: Appears normal Nuchal Fold: Not evaluated d/t GA Nasal Bone: Could Not Document Palate: Not well visualized Profile: Could not document Orbits/Eyes: Appears normal Mandible: Appears Normal Maxilla: Could not document Thorax Thoracic Contour: Appears normal Lungs: Appears normal 4 Chamber View: Echogenic focus L Cardiac Activity: Appears Normal Cardiac Rhythm: Normal Cardiac Situs: Appears normal Rt Outflow Tract: Not well visualized Lt Outflow Tract: Could not document Aortic Arch: Appears normal Ductal Arch: Could not document SVC: Appears Normal Interventr. Septum: Not well visualized Cardiac [place]: Appears normal Diaphragm: Not well visualized 3 Vessel View: Appears normal 3 V Trachea View: Appears Normal IVC: Appears normal Crossing: Could not document Abdomen Ventral Wall: Appears normal Cord Insertion: Appears normal Situs: Appears normal Stomach: Appears normal Lt Kidney: Appears normal Rt Kidney: Appears normal Bladder: Appears normal Bowel: Echogenic Extremities Lt Humerus: Appears normal Rt Humerus: Appears normal Lt Forearm: Appears normal Rt Forearm: Appears normal Lt Hand: Appears normal Rt Hand: Appears normal Lt Femur: Appears normal Rt Femur: Appears normal Lt Lower Leg: Appears normal Rt Lower Leg: Appears normal Lt Foot: Appears normal Rt Foot: Appears normal Other Umbilical Cord: Appears normal Masses: None visualized Genitalia: Female CERVIX UTERUS ADNEXA: Cervix Length: 3.46 cm. Appears closed, without funnelling Uterus Gravid uterus Right Ovary Size(cm) 3.19 x 1.85 x 1.9 Vol(ml): 5.87 Visualized Left Ovary Size(cm) 2.77 x 2.49 x 2.22 Vol(ml): 8.02 Visualized Cul De Sac No fluid seen Adnexa No adnexal masses identified COMMENTS: 1. Ultrasound is not diagnostic for chromosomal abnormalities, will not detect all structural abnormalities, and is not diagnostic for genetic disorders even if multiple exams are performed during a given . 2. In addition to the trans abdominal approach, a trans vaginal ultrasound was also performed to optimize the visualization of the lower uterine segment and the cervix. 3. anatomic survey is incomplete due to position. Melo Saunders MD Electronically Signed Final Report 10/22/2022 15:39 IMPRESSION: 1. Single intrauterine size consistent with assigned EVARISTO. 2. Anterior placenta without evidence of placenta previa on todays exam. 3. Echogenic focus identified in the cardiac left ventricle. 4. Echogenic bowel identified. 5. Amniotic fluid assessment (DVP) is normal. RECOMMENDATIONS: 1. Please see MFM consultation documentation from today's encounter. 2. Patient is scheduled in four weeks to complete the anatomic survey. 3. Subsequent follow up or other follow up as clinically determined by primary OB provider unless otherwise specified by [facility]. 4. Results forwarded to ordering provider so they can follow up with the patient as necessary. Procedure Note Radiology, RadiologistMD - 10/22/2022 THIS [facility]AM [facility] (Signed Final 10/22/2022 15:39) PATIENT INFO: ID #: [id number] : [birth year] (21 yrs)(F) Name: SHEILA GAUTHIER Visit Date: 10/22/2022 13:46 PERFORMED BY: Attending: Melo Saunders MD Performed By: Malu Berman RDMS Referred By: Elie Lujan DO Ref. 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 Cord Insertion: Eccentric (>2cm from edge) Largest Pocket(cm) 4.92 BIOMETRY: BPD: 73.1 mm G.Age: 29w 2d 34 % OFD: 100.8 mm HC: 276.6 mm G.Age: 30w 2d 39 % AC: 255.9 mm G.Age: 29w 5d 55 % FL: 58 mm G.Age: 30w 2d 62 % HUM: 50.4 mm G.Age: 29w 4d 50 % CER: 35.5 mm G.Age: 29w 5d 57 % LV: 2.3 mm CM: 5.3 mm TIB: 49.8 mm G.Age: 29w 6d 61 % CI: 72.5 % 70 - 86 FL/HC: 21.0 % 19.6 - 20.8 HC/AC: 1.08 0.99 - 1.21 FL/BPD: 79.3 % 71 - 87 FL/AC: 22.7 % 20 - 24 Est. FW: 1486 gm 3 lb 4 oz 57 % OB HISTORY: : 3 Term: 2 Livin GESTATIONAL AGE: LMP: 19w 5d Date: 06/06/22 EVARISTO: 03/13/23 U/S Today: 29w 6d EVARISTO: 01/01/23 Best: 29w 3d Det. By: Early EVARISTO: 01/04/23 Ultrasound (08/23/22) TARGETED ANATOMY: Central Nervous System Calvarium/Cranial V.: Appears normal Intracranial Lilia: Appears normal Cavum: Appears normal Parenchyma: Appears Normal Lateral Ventricles: Appears normal Choroid Plexus: Appears normal Cereb./Vermis: Appears normal Cisterna Magna: Appears normal Midline Falx: Appears Normal Spine Cervical: Appears normal Thoracic: Appears normal Lumbar: Appears normal Sacral: Appears normal Shape/Curvature: Appears Normal Head/Neck Face: Not well visualized Lips: Appears normal Neck: Appears normal Nuchal Fold: Not evaluated d/t GA Nasal Bone: Could Not Document Palate: Not well visualized Profile: Could not document Orbits/Eyes: Appears normal Mandible: Appears Normal Maxilla: Could not document Thorax Thoracic Contour: Appears normal Lungs: Appears normal 4 Chamber View: Echogenic focus L Cardiac Activity: Appears Normal Cardiac Rhythm: Normal Cardiac Situs: Appears normal Rt Outflow Tract: Not well visualized Lt Outflow Tract: Could not document Aortic Arch: Appears normal Ductal Arch: Could not document SVC: Appears Normal Interventr. Septum: Not well visualized Cardiac [place]: Appears normal Diaphragm: Not well visualized 3 Vessel View: Appears normal 3 V Trachea View: Appears Normal IVC: Appears normal Crossing: Could not document Abdomen Ventral Wall: Appears normal Cord Insertion: Appears normal Situs: Appears normal Stomach: Appears normal Lt Kidney: Appears normal Rt Kidney: Appears normal Bladder: Appears normal Bowel: Echogenic Extremities Lt Humerus: Appears normal Rt Humerus: Appears normal Lt Forearm: Appears normal Rt Forearm: Appears normal Lt Hand: Appears normal Rt Hand: Appears normal Lt Femur: Appears normal Rt Femur: Appears normal Lt Lower Leg: Appears normal Rt Lower Leg: Appears normal Lt Foot: Appears normal Rt Foot: Appears normal Other Umbilical Cord: Appears normal Masses: None visualized Genitalia: Female CERVIX UTERUS ADNEXA: Cervix Length: 3.46 cm. Appears closed, without funnelling Uterus Gravid uterus Right Ovary Size(cm) 3.19 x 1.85 x 1.9 Vol(ml): 5.87 Visualized Left Ovary Size(cm) 2.77 x 2.49 x 2.22 Vol(ml): 8.02 Visualized Cul De Sac No fluid seen Adnexa No adnexal masses identified COMMENTS: 1. Ultrasound is not diagnostic for chromosomal abnormalities, will not detect all structural abnormalities, and is not diagnostic for genetic disorders even if multiple exams are performed during a given . 2. In addition to the trans abdominal approach, a trans vaginal ultrasound was also performed to optimize the visualization of the lower uterine segment and the cervix. 3. anatomic survey is incomplete due to position. Melo Saunders MD Electronically Signed Final Report 10/22/2022 15:39 IMPRESSION: 1. Single intrauterine size consistent with assigned EVARISTO. 2. Anterior placenta without evidence of placenta previa on todays exam. 3. Echogenic focus identified in the cardiac left ventricle. 4. Echogenic bowel identified. 5. Amniotic fluid assessment (DVP) is normal. RECOMMENDATIONS: 1. Please see [facility] consultation documentation from today's encounter. 2. Patient is scheduled in four weeks to complete the anatomic survey. 3. Subsequent follow up or other follow up as clinically determined by primary OB provider unless otherwise specified by [facility]. 4. Results forwarded to ordering provider so they can follow up with the patient as necessary. us Elie Lujan DO IMG OB US PROCEDURES Final Resul t documented in this encounter Visit Diagnoses Not on filedocumented in this encounter Care Teams Seo Expert Relationship Specialty Start Date End Date Richard Galaviz MD 112 [facility] [address] [place] [address] PCP - General Family Medicine 09/10/22 Elie Lujan DO 102 [facility] [place] [address] [place] [address] PCP - [facility] 07/14/23 documented as of this encounter
--- OUTSIDE RECORDS SUMMARY | 2024-09-16 07:01 | XMS_ITS | Encounter Summary ---
Author Organization [facility] Address [address] [place] [address] Care Team Providers Care Clinical Support Nurse Name Role Phone Richard Galaviz MD Primary Care Provider [phone] Elie Lujan DO Unavailable Encounter Details Date Type Department Care Team (Late st Contact Info) Description 01/03/2023 Abstract [facility] OB [address] [place] [address] Elie Lujan DO [facility] [address], [facility]11 Social History Tobacco Use Types Packs/Day Years Used Date Smoking Tobacco: Never Alcohol Use Standard Drinks/Week Comments Never 0 (1 standard drink = 0.6 oz pur e alcohol) Caffeine intake: none Education Answer Date Recorded What is the highest level of school you have completed or the highest degree you have received? 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 on file Not on file documented as of this encounter Plan of Treatment Upcoming Encounters Date Type Department Care Team (Late st Contact Info) Description 09/22/2024 11:20 AM EDT Routine [facility] OB [address] [place] [address] Elie Lujan DO [facility] [address], [facility]11 documented as of this encounter Visit Diagnoses Not on filedocumented in this encounter Care Teams Clinical Support Nurse Relationship Specialty Start Date End Date Richard Galaviz MD 112 [facility] 100 [place] [address] PCP - General Family Medicine 09/10/22 Elie Lujan DO 102 [facility] [place] [address] [place] [address] PCP - [facility] 07/14/23 documented as of this encounter
--- OUTSIDE RECORDS SUMMARY | 2024-09-16 07:01 | XMS_ITS | Encounter Summary ---
Author Organization [facility] Address [address] [place] [facility] [place] [address] Care Team Providers Care Power Tool Repair Technician Name Role Phone Richard Galaviz MD Primary Care Provider [phone] LeElie schultz DO Unavailable Reason for Visit * Reason Onset Date Comments Med Refill 09/02/2024 Encounter Details Date Type Department Care Team (Late st Contact Info) Description 09/02/2024 Refill [facility] [address] [place] [address] Richard Galaviz MD [address] [place] [address] Moderate persistent asthma without complication (CMS/HCC) Social History Tobacco Use Types Packs/Day Years Used Date Smoking Tobacco: Never Alcohol Use Standard Drinks/Week Comments Never 0 (1 standard drink = 0.6 oz pur e alcohol) Caffeine intake: none Education Answer Date Recorded What is the highest level of school you have completed or the highest degree you have received? 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 documented in this encounter Plan of Treatment Upcoming Encounters Date Type Department Care Team (Late st Contact Info) Description 09/22/2024 11:20 AM EDT Routine [facility] [address] [facility] [place] [address] Elie Lujan DO [address] [place] [address] documented as of this encounter Visit Diagnoses Diagnosis Moderate persistent asthma without complication (CMS/[facility]) documented in this encounter Care Teams Power Tool Repair Technician Relationship Specialty Start Date End Date Richard Galaviz MD 112 [facility] 100 [place] [address] PCP - General Family Medicine 09/10/22 Elie Lujan DO [address] [place] [address] PCP - [facility] 07/14/23 documented as of this encounter
--- OUTSIDE RECORDS SUMMARY | 2024-09-16 07:01 | XMS_ITS | Encounter Summary ---
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 Ashley is 1 year from her last office visit. Please get her scheduled. documented in this encounter Plan of Treatment Upcoming Encounters Date Type Department Care Team (Late st Contact Info) Description 09/22/2024 11:20 AM EDT Routine [facility] OB [address] [place] [address] Elie Lujan DO [address] [place] [address] documented as of this encounter Visit Diagnoses Diagnosis Moderate persistent asthma without complication (CMS/[facility]) documented in this encounter Care Teams Cylinder Checker Relationship Specialty Start Date End Date Richard Galaviz MD 112 [facility] [address] [place] [address] PCP - General Family Medicine 09/10/22 Elie Lujan DO [address] [place] [address] PCP - [facility] 07/14/23 documented as of this encounter
--- OUTSIDE RECORDS SUMMARY | 2024-09-16 07:01 | XMS_ITS | Clinical Summary ---
Author Organization [employer] tem Address [id number] [address] [place] [address] Care Team Providers Care Green Plumber Name Role Phone Richard Galaviz MD Primary Care Provider [phone] Allergies No known active allergies Medications albuterol (ACCUNEB) 1.25 mg/3 mL nebulizer solution Inhale 3 mL (1.25 mg total) by nebulization every 6 (six) hours as needed for wheezing. Active albuterol (PROVENTIL HFA;VENTOLIN HFA) 90 mcg/actuation inhaler Inhale 2 puffs every 6 (six) hours as needed for wheezing. Active predniSONE (DELTASONE) 20 mg tablet Take 40 mg twice daily for 5 days then 20 mg twice daily for 5 days then 10 mg twice daily for 5 days then 10 mg once daily for 5 days. 40 tablet 06/25/19 19 Active Additional Information Patient not taking.Reported on 10/22/2022 budesonide-formote roL (SYMBICORT) 160-4.5 mcg/actuation inhaler Inhale 2 puffs in the morning and 2 puffs before bedtime. Active ondansetron ODT (ZOFRAN ODT) 4 mg disintegrating tablet Dissolve 1 tablet (4 mg total) on tongue every 8 (eight) hours as needed for nausea or vomiting. Active Active Problems Problem Noted Date Diagnosed Date cardiac echogenic focus, antepartum 2022 Echogenic bowel of fetus on ultrasound 10/22/2022 Acute asthma exacerbation 06/21/2018 Family History Medical History Relation Name Comments Cancer Father Relation Name Status Comments Father Mother Alive Social History Tobacco Use Types Packs/Day Years Used Date Smoking Tobacco: Never Smokeless Tobacco: Never Tobacco Cessation:Counseling Given: Not Answered Alcohol Use Standard Drinks/Week Comments No 0 (1 standard drink = 0.6 oz pur e alcohol) AUDIT-C Answer Date Recorded Frequency of Alcohol Consumption Never 06/20/2018 Average Number of Drinks Not on file 019 Frequency of Binge Drinking Not on file 12/2018 Childcare Answer Date Recorded Childcare Unknown 09/17/2018 Employment Answer Date Recorded Employment Unknown 09/17/2018 Hunger Screening Answer Date Recorded Within the past 12 months we worried whether our food would run out before we got money to buy more. Never True 11/25/2022 Within the past 12 months th e food we bought just didn't last and we didn't have money to get more. Never True 11/25/2022 Purpose - Life Answer Date Recorded Purpose and direction in life Unknown Comments No Sex and Gender Information Value Date Recorded Sex Assigned at Not on file Legal Sex Female 9:12 PM EST Gender Identity Not on file Sexual Orientation Not on file Last Filed Vital Signs Vital Sign Reading Time Taken Comments Blood Pressure 108/71 11/25/2022 1:05 PM EDT Pulse 88 11/25/2022 1:05 PM EDT Temperature 36.8 C (98.2 F) 06/24/2018 11:00 AM EDT Respiratory Rate 18 06/24/2018 1:27 PM EDT Oxygen Saturation 94% 06/24/2018 1:03 PM EDT Inhaled Oxygen Concentration - - Weight 72 kg (158 lb 12.8 oz) 11/25/2022 1:05 P M EDT Height 167.6 cm (5' 6 ) 06/21/2018 12:02 PM EDT Body Mass Index 25.63 06/21/2018 12:02 PM EDT Plan of Treatment Health Maintenance Due Date Last Done Comments DTaP,Tdap and Td Vaccines (6 - Tdap) 12/06/2010 10/02/2005, 12/09/2001, 10/22/2000, Additional history exists Depression Screening 2011 Pap Smear 12/06/2020 Chlamydia Screening 09/17/2023 09/16/2022 Adult BMI Screening 11/26/2023 11/25/2022 Tobacco Screening 11/26/2023 11/25/2022 Influenza Vaccine 12/13/2024 Medical Devices Not on file Insurance Advance Directives * Full Code (Latest Code Status on File) Date Activated Date Inactivated Comments 06/21/2018 4:58 PM 06/24/2018 5:56 PM Care Teams Green Plumber Relationship Specialty Start Date End Date Richard Galaviz MD PCP - General Family Medicine 06/20/18
--- OUTSIDE RECORDS SUMMARY | 2024-09-16 07:01 | XMS_ITS | Encounter Summary ---
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 on file Not on file documented as of this encounter Plan of Treatment Upcoming Encounters Date Type Department Care Team (Late Contact Info) Description 09/22/2024 11:20 AM EDT Routine [facility] [address] [place] [address] Elie Lujan DO [address], [place] [id number] documented as of this encounter Visit Diagnoses Not on filedocumented in this encounter Care Teams Sales Office Coordinator Relationship Specialty Start Date End Date Richard Galaviz MD [address] [facility] 100 [place] [address] PCP - General Family Medicine 09/10/22 Elie Lujan DO 102 [facility] [address] [place] [address] PCP - [facility] 07/14/23 documented as of this encounter
--- OUTSIDE RECORDS SUMMARY | 2024-09-16 07:01 | XMS_ITS | Encounter Summary ---
Author Organization [facility] Address [address] [facility] [place] [address] Care Team Providers Care Pantry Attendant Name Role Phone Richard Galaviz MD Primary Care Provider + [phone] Elie Lujan DO Unavailable Reason for Visit * Reason Onset Date Comments Med Refill 08/30/2024 Encounter Details Date Type Department Care Team (Late Contact Info) Description 08/30/2024 Refill [facility] [address] [place] [address] [place] [address] Richard Galaviz MD [address] [place] [address] Moderate persistent asthma without complication (CMS/HCC) Social [...] Industry Job Start Date Job End Date 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 Not on file Not on file documented as of this encounter Plan of Treatment Upcoming Encounters Date Type Department Care Team (Late Contact Info) Description 09/22/2024 11:20 AM EDT Routine [facility] OB [address] [facility] [address] [place] [phone] Elie Lujan DO [address] [address] documented as of this encounter Visit Diagnoses Diagnosis Moderate persistent asthma without complication (CMS/[facility]) documented in this encounter Care Teams Pantry Attendant Relationship Specialty Start Date End Date Richard Galaviz MD [address] [facility] [address] [place] [address] PCP - General Family Medicine 09/10/22 Elie Lujan DO [address] [address] PCP - [facility] 07/14/23 documented as of this encounter
--- OUTSIDE RECORDS SUMMARY | 2024-09-16 07:01 | XMS_ITS | Encounter Summary ---
Author Organization [facility] Address [address] [facility] [place] [address] Care Team Providers Care Preformer Impregnated Fabrics Name Role Phone Richard Galaviz MD Primary Care Provider [phone] Elie Lujan DO Unavailable Encounter Details Date Type Department Care Team (Late st Contact Info) Description 09/26/2022 Abstract [facility] OB [address] [facility] [place] [address] Shobha Oscar PA [address] [place] [address] Dr [place], [facility] [address] Social History Tobacco Use Types Packs/Day Years Used Date Smoking Tobacco: Never Tobacco Cessation:Counseling Given: Not Answered Alcohol Use Standard Drinks/Week Comments Never 0 [...] AM EDT Routine [facility] [address] [facility] [place] [address] Elie Lujan, [address] [facility] [address] [place], [facility] [address] documented as of this encounter Visit Diagnoses Not on filedocumented in this encounter Care Teams Preformer Impregnated Fabrics Relationship Specialty Start Date End Date Richard Galaviz MD [address] [facility] 100 [place] [address] PCP - General Family Medicine 09/10/22 Elie Lujan DO [address] [place] [address] [place] [address] PCP - [facility] 07/14/23 documented as of this encounter
--- OUTSIDE RECORDS SUMMARY | 2024-09-16 07:01 | XMS_ITS | Encounter Summary ---
Author Organization [facility] Address [address] [facility] [place] [address] Care Team Providers Care Extrusion Operator Name Role Phone Richard Galaviz MD Primary Care Provider + [phone] Elie Lujan DO Unavailable Reason for Visit * Reason Onset Date Comments Med Refill 09/02/2024 Encounter Details Date Type Department Care Team (Late Contact Info) Description 09/02/2024 Refill [facility] [address] [place] [address] [place] [address] Richard Galaviz MD [address] [place] [address] Moderate persistent asthma without complication (CMS/HCC) Social [...] Industry Job Start Date Job End Date 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 file Not on file documented as of this encounter Plan of Treatment Upcoming Encounters Date Type Department Care Team (Late Contact Info) Description 09/22/2024 11:20 AM EDT Routine [facility] [address] [facility] [place] [phone] Elie Lujan DO [address] [place] [address] documented as of this encounter Visit Diagnoses Diagnosis Moderate persistent asthma without complication (CMS/[facility]) documented in this encounter Care Teams Extrusion Operator Relationship Specialty Start Date End Date Richard Galaviz MD [address] [facility] [address] [place] [address] PCP - General Family Medicine 09/10/22 Elie Lujan DO [address] [place] [address] PCP - [facility] 07/14/23 documented as of this encounter
--- OUTSIDE RECORDS SUMMARY | 2024-09-16 07:01 | XMS_ITS | Encounter Summary ---
Author Organization [facility] Address [address] [facility] [place] [address] Care Team Providers Care Story Editor Name Role Phone Richard Galaviz MD Primary Care Provider [phone] Elie Lujan DO Unavailable Encounter Details Date Type Department Care Team (Late st Contact Info) Description 10/08/2022 Abstract [facility] OB [address] [place] [address] Elie Lujan [address] [facility] [address] [place], [facility]11 Social History Tobacco Use Types Packs/Day Years [...] Routine [facility] B[facility] OB [address] [place] [address] Elie Lujan, [address], [facility] documented as of this encounter Visit Diagnoses Not on filedocumented in this encounter Care Teams Story Editor Relationship Specialty Start Date End Date Richard Galaviz MD 112 [facility] 100 [place] [address] PCP - General Family Medicine 09/10/22 Elie Lujan DO [address] [place] [address] [address] [place] [address] PCP - [facility] 07/14/23 documented as of this encounter
--- OUTSIDE RECORDS SUMMARY | 2024-09-16 07:01 | XMS_ITS | Encounter Summary ---
Author Organization [facility] Address [address] [place] [address] Care Team Providers Care Western Felt Hat Blocker Name Role Phone Richard Galaviz MD Primary Care Provider [phone] Elie Lujan DO Unavailable Reason for Visit * Reason Comments Med Refill Encounter Details Date Type Department Care Team (Late Contact Info) Description 12/30/2022 Refill [facility] [address] [place] [phone] Richard Galaviz MD [address] [place] [address] [address] [place] [address] Rosacea, unspecified Social History Tobacco Use Types Packs/Day Years [...] Industry Job Start Date Job End Date 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 on file Not on file documented as of this encounter Plan of Treatment Upcoming Encounters Date Type Department Care Team (Late Contact Info) Description 09/22/2024 11:20 AM EDT Routine [facility] OB [address] [place] [address] Elie Lujan DO [address] [place] [address] documented as of this encounter Visit Diagnoses Diagnosis Rosacea, unspecified documented in this encounter Care Teams Western Felt Hat Blocker Relationship Specialty Start Date End Date Richard Galaviz MD 112 [facility] 100 [place] [address] PCP - General Family Medicine 09/10/22 Elie Lujan DO [address] [place] [address] PCP - [facility] 07/14/23 documented as of this encounter
--- NOTE | 2024-09-16 07:07 | US_ITS ---
The [address] [address] Patient Name: ERNESTINE MILLER MRN: [id number] date: 2000 Sex: F Assigned Patient Location: Current Patient Location: US Accession/Order Number: [id number] Exam Date: 09/16/2024 09:41 Report Date: 09/16/2024 09:47 At the request of: SKYE ALTAMIRANO DO Procedure: US OB cervical length CLINICAL DATA: anatomy ULTRASOUND OB ANATOMY COMPARISON: None There is a single live intrauterine gestation in breech presentation. The amniotic fluid volume is subjectively normal. The placenta is fundal. There is cardiac and somatic activity with heart rate of 140 bpm. The neural axis and all 4 extremities were surveyed by the card game operator and no abnormalities were detected. The stomach, bladder, kidneys, three-vessel cord with insertion, four-chamber heart with right and left outflow tracts, diaphragm and the female genitalia are seen. The following measurements were obtained: Biparietal diameter 6.7 cm 27 weeks 0 days 36% Head circumference 25.9 cm 28 weeks 1 day 55% Abdominal circumference 22.2 cm 26 weeks 4 days 25% Femur length 5.1 cm 27 weeks 3 days 43% The composite ultrasound age based on these measurements is 27 weeks 2 days +/- 1 week 6 days. The estimated date of delivery is December 14, 2024. This correlates with dates based on last menstrual period. US/US OB anatomy IMPRESSION: SINGLE LIVE INTRAUTERINE GESTATION AT 27 WEEKS 2 DAY. UNREMARKABLE ANATOMY SURVEY. ULTRASOUND OB CERVICAL LENGTH COMPARISON: None The cervix was evaluated with the transvaginal probe. The cervix is closed. The estimated cervical length is 5.3 cm. There is no evidence of previa. IMPRESSION: CLOSED CERVIX Impression dictated by: Nadja Nick M.D. 09/16/2024 9:47 AM Dictation Location: [place] [address] Electronically authenticated by: [id number] Y Date: 09/16/2024 09:47
--- NOTE | 2024-09-16 07:07 | US_ITS ---
The [address] [address] Patient Name: ERNESTINE MILLER MRN: [id number] date: 2000 Sex: F Assigned Patient Location: Current Patient Location: Accession/Order Number: [id number] Exam Date: 09/16/2024 09:41 Report Date: 09/16/2024 09:47 At the request of: SKYE ALTAMIRANO DO Procedure: US OB cervical length CLINICAL DATA: anatomy ULTRASOUND OB ANATOMY COMPARISON: None There is a single live intrauterine gestation in breech presentation. The amniotic fluid volume is subjectively normal. The placenta is fundal. There is cardiac and somatic activity with heart rate of 140 bpm. The neural axis and all 4 extremities were surveyed by the journeyman electrician and no abnormalities were detected. The stomach, bladder, kidneys, three-vessel cord with insertion, four-chamber heart with right and left outflow tracts, diaphragm and the female genitalia are seen. The following measurements were obtained: Biparietal diameter 6.7 cm 27 weeks 0 days 36% Head circumference 25.9 cm 28 weeks 1 day 55% Abdominal circumference 22.2 cm 26 weeks 4 days 25% Femur length 5.1 cm 27 weeks 3 days 43% The composite ultrasound age based on these measurements is 27 weeks 2 days +/- 1 week 6 days. The estimated date of delivery is December 14, 2024. This correlates with dates based on last menstrual period. US/US OB cervical length IMPRESSION: SINGLE LIVE INTRAUTERINE GESTATION AT 27 WEEKS 2 DAY. UNREMARKABLE ANATOMY SURVEY. ULTRASOUND OB CERVICAL LENGTH COMPARISON: None The cervix was evaluated with the transvaginal probe. The cervix is closed. The estimated cervical length is 5.3 cm. There is no evidence of previa. IMPRESSION: CLOSED CERVIX Impression dictated by: Nadja Nick M.D. 09/16/2024 9:47 AM Dictation Location: [place] [address] Electronically authenticated by: [id number] Y Date: 09/16/2024 09:47
[2024-09-16 08:59] LABS: Basophils Percent Auto 0.6 % (0.2-2.0); Eosinophils Absolute Auto 0.5 10^3/uL (0.0-0.7); Eosinophils Percent Auto 7.3 % (0.9-7.0); Hematocrit 35.4 % (36.0-48.0); Hemoglobin 12.2 g/dL (12.0-16.0); Immature Granulocytes Abs Auto 0.05 10^3/uL (0.00-0.03); Immature Granulocytes Pct Auto 0.7 % (0.0-0.5); Lymphocytes Absolute Auto 0.7 10^3/uL (1.2-3.8); Lymphocytes Percent Auto 10.8 % (20.5-60.0); Mean Corpuscular HGB Conc 34.5 g/dL (29.9-35.2); Mean Corpuscular Hemoglobin 29.9 pg (26.7-34.0); Mean Corpuscular Volume 86.8 fL (81.0-99.0); Mean Platelet Volume 10.9 fL (9.5-13.5); Monocytes Absolute Auto 0.3 10^3/uL (0.3-0.8); Monocytes Percent Auto 4.7 % (1.7-12.0); Neutrophils Absolute Auto 5.2 10^3/uL (1.4-6.5); Neutrophils Percent Auto 75.9 % (43.0-75.0); Platelet Count 210 10^3/uL (150-450); Red Blood Count 4.08 10^6/uL (4.20-5.40); Red Cell Distribution Width 12.8 % (11.0-15.0); White Blood Count 6.9 10^3/uL (4.0-11.0)
[2024-09-16 09:13] LABS: Glucose 1 Hour 91 mg/dL (<130)
== END 2024-09-16 06:57 | disposition home or self-care (01) ==
PROVIDERS: PCP Family Medicine; Visit Provider Obstetrics & Gynecology
DX: Z36.89 Encounter for other specified antenatal screening (principal); Z3A.27 27 weeks gestation of pregnancy
CPT/HCPCS: 36415; 76805; 76817; 82950; 85025

== ENCOUNTER 2024-11-16 12:11 | Outpatient (REF) | payer BC, SELFPAY | END 2024-11-16 12:12 | disposition home or self-care (01) | LOC: LAB 12:11 | PROVIDERS: PCP Family Medicine; Visit Provider Physician Assistant | DX: Z34.93 Encounter for supervision of normal pregnancy, unspecified, third trimester (principal) | CPT/HCPCS: 87081 ==

== ENCOUNTER 2024-11-30 14:20 | Observation (INO) | payer BC, MEDICAID, SELFPAY ==
[2024-11-30 14:30] VITALS: BP 133/85; PULSE 92
[2024-11-30 15:01] VITALS: BP 119/68; PULSE 90
[2024-11-30 15:34] VITALS: BP 108/53; PULSE 82
== END 2024-11-30 15:38 | disposition home or self-care (01) ==
PROVIDERS: Admitting Provider Obstetrics & Gynecology; PCP Family Medicine; Visit Provider Obstetrics & Gynecology
DX: O16.9 Unspecified maternal hypertension, unspecified trimester (principal); Z3A.00 Weeks of gestation of pregnancy not specified
CPT/HCPCS: 59025; G0378; G0379

== ENCOUNTER 2024-12-01 05:18 | Inpatient (IN) | payer BC, MEDICAID, SELFPAY ==
[2024-12-01] VITALS (31 sets, daily range): BP systolic 104–141; BP diastolic 55–92; PULSE 58–96; TEMP 36.2–36.3
[2024-12-01] MEDS: 0.9 % SODIUM CHLORIDE 1,000 ML 125 ML IV (05:50)
[2024-12-01] MEDS: OXYTOCIN/0.9 % SODIUM CHLORIDE 10 UNITS/500 ML PLAST..BAG 6 UNIT IV (06:15)
[2024-12-01 06:45] LABS: Hematocrit 31.5 % (36.0-48.0); Hemoglobin 10.9 g/dL (12.0-16.0); Mean Corpuscular HGB Conc 34.6 g/dL (29.9-35.2); Mean Corpuscular Hemoglobin 28.5 pg (26.7-34.0); Mean Corpuscular Volume 82.2 fL (81.0-99.0); Platelet Count 196 10^3/uL (150-450); Red Blood Count 3.83 10^6/uL (4.20-5.40); White Blood Count 4.4 10^3/uL (4.0-11.0)
[2024-12-01 06:55] LABS: Cannabinoid Screen Urine NEGATIVE (NEGATIVE); Methamphetamines Screen Urine NEGATIVE (NEGATIVE); Tricyclic Antidepressant Urine NEGATIVE (NEGATIVE)
--- NOTE | 2024-12-01 07:39 | W.PC.ACHO ---
Registration Status: ADM IN Primary Language: Estonian Preferred Language: Estonian Report given to Cristopher BEAL. Care relinquished. Active Medications Generic Name Dose Route Start Last Admin Trade Name Freq PRN Reason Stop Dose Admin Diphenhydramine HCl 25 mg 12/01/24 07:34 Diphenhydramine Hcl 50 Mg/Ml Vial IV 12/02/24 07:35 Q6H PRN Itching Ephedrine Sulfate 5 mg 12/01/24 07:34 Ephedrine Sulfate 50 Mg/Ml Vial IV 12/02/24 07:35 Q5M PRN Blood Pressure - Low Tranexamic Acid 1,000 mg/ 110 mls @ 440 mls/hr 12/01/24 05:24 Sodium Chloride IV 12/03/24 05:24 ONCE PRN Uterine Bleeding Sodium Chloride 1,000 mls @ 125 mls/hr 12/01/24 05:30 12/01/24 05:50 Sodium Chloride 0.9% 1,000 Ml IV 125 mls/hr .Q8H ARACELI Administration Oxytocin/Sodium Chloride 10 units in 500 mls @ 6 mls/hr 12/01/24 05:30 12/01/24 06:45 Pitocin 10 Unit/500 Ml-Ns IV 4 milliunit/min TITR ARACELI 12 mls/hr Protocol Infusion 2 MILLIUNIT/MIN Oxytocin/Sodium Chloride 20 units in 1,000 mls @ 125 mls/hr 12/01/24 05:24 Pitocin 20 Unit/1,000 Ml-Ns IV Q8H PRN POST DELIVERY Ropivacaine/Sodium Chloride 400 mg in 200 mls @ 6 mls/hr 12/01/24 07:45 Naropin 0.2% 400 Mg/200 Ml Bag EPIDURAL Q24H ARACELI Sodium Chloride 1,000 mls @ 1,000 mls/hr 12/01/24 07:34 Sodium Chloride 0.9% 1,000 Ml IV 12/01/24 08:33 .Q1H ONE Lidocaine 5 ml 12/01/24 05:24 Lidocaine Viscous 2% 15 Ml Solution TOPICAL 12/03/24 05:26 ONCE PRN Pain Lidocaine 1 ml 12/01/24 05:24 Lidocaine Hcl 1% 200 Mg/20 Ml Mdv INJ 12/03/24 05:26 ONCE PRN Pain Methylergonovine Maleate 0.2 mg 12/01/24 05:24 Methylergonovine Maleate 0.2 Mg/Ml Ampule IM 12/03/24 05:24 ONCE PRN Uterine Contractility/Contract Methylergonovine Maleate 0.2 mg 12/01/24 05:24 Methylergonovine Maleate 0.2 Mg Tablet PO 12/03/24 05:24 Q4H PRN Uterine Contractility/Contract Misoprostol 600 mcg 12/01/24 05:24 Misoprostol 100 Mcg Tablet PO 12/03/24 05:24 ONCE PRN Uterine Bleeding Misoprostol 800 mcg 12/01/24 05:24 Misoprostol 100 Mcg Tablet SL 12/03/24 05:24 ONCE PRN Uterine Bleeding Misoprostol 1,000 mcg 12/01/24 05:24 Misoprostol 100 Mcg Tablet TN 12/03/24 05:24 ONCE PRN Uterine Bleeding Nalbuphine HCl 10 mg 12/01/24 05:24 Nalbuphine Hcl 10 Mg/Ml Ampule IV Q3H PRN Pain Scale 4-6 Naloxone HCl 0.4 mg 12/01/24 07:34 Naloxone Hcl 0.4 Mg/Ml Vial IV 12/02/24 07:35 ONCE PRN Respiratory Distress Ondansetron HCl 4 mg 12/01/24 05:24 Ondansetron Pf 4 Mg/2 Ml Vial IV Q6H PRN Nausea And Vomiting Ondansetron HCl 4 mg 12/01/24 05:24 Ondansetron 4 Mg Rapdis Tablet SL Q6H PRN Nausea And Vomiting Oxytocin 10 unit 12/01/24 05:24 Oxytocin 10 Unit/Ml Vial IM 12/03/24 05:24 ONCE PRN Bleeding Diet Category Date Time Status Regular Consistency Diet Diet 12/01/24 05:24 Active Consults Category Date Time Status Consult to Anesthesiology Routine Cons 12/01/24 Ordered IV Insertion/Site Date of IV Line Insertion [ 12/01/24 Short PIV (<1.75 in) 20g left Hand] IV Insertion Time [Short PIV ( 05:50 <1.75 in) 20g left Hand] Neurology Patient orientation (short person,place list)
[2024-12-01] MEDS: 0.9 % SODIUM CHLORIDE 1,000 ML 1000 ML IV (11:44)
[2024-12-01] MEDS: ROPIVACAINE HCL/PF 400 MG/200 ML PREMIX 10 MG EPIDURAL (11:44)
[2024-12-01] MEDS: OXYTOCIN/0.9 % SODIUM CHLORIDE 20 UNITS/1,000 ML PLAST..BAG 125 UNIT IV (13:00)
[2024-12-01] MEDS: IBUPROFEN 600 MG TABLET PO (19:12)
[2024-12-01] MEDS: ACETAMINOPHEN 325 MG TABLET 650 MG PO (22:35)
[2024-12-02] MEDS: IBUPROFEN 600 MG TABLET PO ×2 (06:15→13:49)
[2024-12-02 06:17] VITALS: BP 120/63; PULSE 78
[2024-12-02 06:19] LABS: Hematocrit 27.9 % (36.0-48.0); Hemoglobin 9.8 g/dL (12.0-16.0); Immature Granulocytes Abs Auto 0.03 10^3/uL (0.00-0.03); Immature Granulocytes Pct Auto 0.4 % (0.0-0.5); Lymphocytes Absolute Auto 0.7 10^3/uL (1.2-3.8); Mean Corpuscular HGB Conc 35.1 g/dL (29.9-35.2); Mean Corpuscular Hemoglobin 29.3 pg (26.7-34.0); Mean Corpuscular Volume 83.3 fL (81.0-99.0); Platelet Count 180 10^3/uL (150-450); Red Blood Count 3.35 10^6/uL (4.20-5.40); White Blood Count 7.5 10^3/uL (4.0-11.0)
[2024-12-02 08:09] LABS: Rubella Antibodies, IgG 1.23 index (Immune >0.99)
[2024-12-02 08:26] VITALS: BP 129/69; PULSE 72
[2024-12-02] MEDS: ACETAMINOPHEN 325 MG TABLET 650 MG PO (08:30)
[2024-12-02 08:35] VITALS: TEMP 36.8
--- NOTE | 2024-12-02 09:10 | PM.OBPN ---
OB - PN: Subj Subjective Patient comments: no complaints [place] status: doing well feeding status: exclusively Exam Constitutional Vital Signs, click to edit/add: Last Vital Signs Temp 98.2 F 12/02/24 08:35 Pulse 72 12/02/24 08:26 Resp 16 12/02/24 08:35 BP 129/69 12/02/24 08:26 O2 Del Method Room Air 12/02/24 08:35 Documenting provider has reviewed patient's vital signs: yes Common normals: no apparent distress General appearance: cooperative and comfortable Orientation/consciousness: Yes awake, Yes oriented to person, Yes oriented to place and Yes oriented to time HENMT Common normals: normocephalic Eye Common normals: EOMs intact bilaterally General eye: normal appearance of both eyes Neck & C-Spine Common normals: full ROM General: normal visual inspection Chest Common normals: inspection of chest normal Respiratory Common normals: normal respiratory effort Effort & inspection: able to speak in complete sentences Cardio Common normals: regular rate and regular rhythm Rate: regular rate Rhythm: regular rhythm GI Common normals: Normal to inspection, nondistended, normoactive bowel sounds present Inspection: normal to inspection Palpation: soft and firm Back & Pelvis Common normals: no CVA tenderness Extremity Common normals: normal to inspection Neuro Common normals: oriented x3 Sensorium/orientation: awake, alert, oriented to person, oriented to place and oriented to time Speech: speech normal Psych Common normals: mental status grossly normal, thought process normal, cooperative, affect normal, speech normal, activity/motor behavior normal, denies hallucinations, denies homicidal ideation and denies suicidal ideation Attitude: calm Thought process: normal thought process Results Labs Labs: Short CBC 12/02/24 Range/Units 06:12 WBC 7.5 (4.0-11.0) 10^3/uL Hgb 9.8 L (12.0-16.0) g/dL Hct 27.9 L (36.0-48.0) % Plt Count 180 (150-450) 10^3/uL OB - PN: A/P Assessment and Plan (1) Term : Plan - Vaginal Delivery day: 1 Plan: discharge home Time Spent with Patient Time: Total time spent is greater than 50% in coordination of care (as documented) at patient's floor/unit and/or counseling patient: Total time spent with greater than 50% in coordination of care (as documented) at patient's floor/unit and/or counseling patient: less than 15 minutes
[2024-12-02] MEDS: RHO(D) IMMUNE GLOBULIN 1,500 UNIT SYRINGE 1500 UNIT IV (11:24)
[2024-12-02 12:09] LABS: Rapid Plasma Reagin, Quant Non Reactive titer (NonRea<1:1)
[2024-12-03 06:07] LABS: Neisseria gonorrhoeae, NAA Negative (Negative)
--- NOTE | 2024-12-08 12:56 | PM.OBPRCVD ---
Procedure Procedure: dos 12/01/2024 Intrapartal events: None Induction method: per pitocin protocol Delivery augmentation: rupture of membranes and pitocin Delivery monitor: external FHT and external uterine Route of delivery: Episiotomy Description: none L&D Laceration Description: none Estimated blood loss (mL): 250 Anesthesia type: Epidural Delivery date: 12/01/24 Gender: female presentation: vertex Placental delivery description: Spontaneous cord description: 3 Vessels
== END 2024-12-02 14:30 | disposition home or self-care (01) | DRG 807 ==
PROVIDERS: Admitting Provider Obstetrics & Gynecology; PCP Family Medicine; Visit Provider Obstetrics & Gynecology
DX: O99.52 Diseases of the respiratory system complicating childbirth (principal); Z37.0 Single live birth; O99.62 Diseases of the digestive system complicating childbirth; K21.9 Gastro-esophageal reflux disease without esophagitis; Z3A.38 38 weeks gestation of pregnancy; J45.40 Moderate persistent asthma, uncomplicated
CPT/HCPCS: 36415; 80307; 83036; 85025; 85027; 85461; 86592; 86762; 86803; 86850; 86900; 86901; 87086; 87340; 87389; 87491; 87591; J2791; J2795